=== PATIENT | female | born 1955 | race Caucasian/White ===

== ENCOUNTER 2017-05-02 05:04 | Inpatient (IN) | payer MEDICAID ==
[~2017-05-02] VITALS: Ht 165.1 cm; Wt 79.8 kg
[~2017-05-02 05:04] MED LIST: DEPAKOTE ER500 MG PO; HYDROCODONE-APA1 TAB PO; TIROSINT50 MCG PO; TOPAMAX50 MG PO; XANAX1 MG PO
[2017-05-02 06:06] LABS: BASOPHILS 0.2 % (0-2); EOSINOPHILS 1.1 % (0-7); HEMOGLOBIN 11.9 g/dL (12-16); IMMATURE GRANULOCYTES 0.2 % (0-5); LYMPHOCYTES 26.6 % (15-50); MCH 30.6 pg (26.0-34.0); MEAN PLATELET VOLUME 12.1 fL (7.4-10.4); MONOCYTES 3.7 % (2-11); NEUTROPHILS 68.2 % (40-80); PLATELET COUNT 177 10x3/uL (130-400); RBC 3.89 10x6/uL (4.00-5.40); RDW 12.4 % (11.5-14.5); WBC 9.6 10x3/uL (4.8-10.8)
[2017-05-02 06:29] LABS: KETONE - SERUM NEGATIVE (NEGATIVE)
[2017-05-02 06:42] LABS: ALBUMIN 3.4 g/dL (3.4-5.0); ALKALINE PHOSPHATASE 111 U/L (46-116); ALT (SGPT) 35 U/L (10-68); BILIRUBIN - TOTAL 0.23 mg/dL (0.2-1.3); CALC OSMOLALITY 286 mosm/kg (275-300); CALCIUM 8.3 mg/dL (8.5-10.1); CARBON DIOXIDE 21.7 mmol/L (21.0-32.0); CHLORIDE - SERUM 101 mmol/L (98-107); CREATININE - SERUM 1.2 mg/dL (0.6-1.3); MAGNESIUM - SERUM 1.6 mg/dL (1.8-2.4); POTASSIUM - SERUM 3.4 mmol/L (3.5-5.1); PROTEIN - SERUM 7.3 g/dL (6.4-8.2); SODIUM 134 mmol/L (136-145); UREA NITROGEN 17 mg/dL (7-18); eGFR NON AFRICAN AMERICAN 48 mL/min (90-120)
[2017-05-02 06:43] LABS: GLUCOSE 399 mg/dL (74-106)
[2017-05-02 07:59] LABS: CKMB 0.1 U/L (0.0-3.6); CREATINE KINASE 64 UL (21-215)
[2017-05-02 08:01] LABS: TROPONIN-I < 0.017 ng/mL (0.000-0.060)
[2017-05-02] MEDS ORDERED: PROTONIX40 MG PO (11:16)
[2017-05-02] MEDS ORDERED: KLONOPIN0.5 MG PO (11:17)
[2017-05-02] MEDS ORDERED: ZOFRAN4 MG PO (11:18)
[2017-05-02] MEDS ORDERED: OMEPRAZOLE20 M1 PO (11:19)
[2017-05-02] MEDS ORDERED: NEURONTIN600 MG PO (11:20)
[2017-05-02 11:26] VITALS: BP 145/77; BMI 27.5
[2017-05-02 12:00] VITALS: BP 145/77
--- NOTE | 2017-05-02 13:34 | NUR ---
CALLED PHARMACY X2 FOR INSULIN. WAITING. WILL CONTINUE TO MONITOR
[2017-05-02 16:11] VITALS: BP 117/66
--- NOTE | 2017-05-02 17:05 | NUR ---
PT SITTING UP IN BED EATING DINNER. STATES SHE HAS A SMALL HEADACHE. OFFERED A COOL CLOTH BUT PT REFUSED AND REFUSED FOR ME TO CALL AND GET MEDICATION. WILL CONTINUE OT MONITOR
[2017-05-02 20:00] VITALS: BP 119/65
[2017-05-02 22:06] LABS: APPEARANCE HAZY (CLEAR); BILIRUBIN NEGATIVE (NEGATIVE); COLOR DK YELLOW (YELLOW); GLUCOSE 500 mg/dL (NEGATIVE); KETONE NEGATIVE (NEGATIVE); LEUKOCYTE ESTERASE NEGATIVE (NEGATIVE); NITRITE NEGATIVE (NEGATIVE); PROTEIN NEGATIVE (NEGATIVE); SPECIFIC GRAVITY 1.025 (1.005-1.020); UROBILINOGEN NORMAL (NORMAL)
[2017-05-03] VITALS: BP 122/59
--- NOTE | 2017-05-03 01:38 | NUR ---
RESTING WITH EYES CLOSED. RR EVEN U/L. NO S/S OF DISCOMFORT. CL IN REACH.
[2017-05-03 04:00] VITALS: BP 113/54
[2017-05-03 05:26] LABS: BASOPHILS 0.2 % (0-2); EOSINOPHILS 0.9 % (0-7); HEMATOCRIT 35.1 % (36.0-48.0); HEMOGLOBIN 11.9 g/dL (12-16); IMMATURE GRANULOCYTES 0.2 % (0-5); LYMPHOCYTES 14.2 % (15-50); MCH 30.5 pg (26.0-34.0); MCHC 33.9 g/dL (31.0-37.0); MEAN PLATELET VOLUME 12.1 fL (7.4-10.4); NEUTROPHILS 80.5 % (40-80); PLATELET COUNT 169 10x3/uL (130-400); RDW 12.7 % (11.5-14.5)
[2017-05-03 05:37] LABS: WBC 12.4 10x3/uL (4.8-10.8)
[2017-05-03 05:39] LABS: CALCIUM 8.6 mg/dL (8.5-10.1); CARBON DIOXIDE 24.4 mmol/L (21.0-32.0); CREATININE - SERUM 1.1 mg/dL (0.6-1.3); MAGNESIUM - SERUM 1.8 mg/dL (1.8-2.4)
[2017-05-03 05:43] LABS: POTASSIUM - SERUM 4.4 mmol/L (3.5-5.1)
--- NOTE | 2017-05-03 07:00 | NUR ---
RECEIVED REPORT. ASSUMED CARE OF PATIENT. CALL LIGHT WITHIN REACH. PATIENT A&O. DENIES NEEDS OTHER THAN FOR THE MD TO APPROVE HER PAIN MEDICATIONS. NO DISTRESS. RESP EVEN AND UNLAOBRED.
[2017-05-03 07:51] VITALS: BP 116/53
--- NOTE | 2017-05-03 09:47 | NUR ---
MEDICATED WITH TYELENOL FOR GENERALIZED PAIN. NO DISTRESS. RESP EVEN AND UNLABORED.
[2017-05-03 11:21] VITALS: Ht 165.1 cm; Wt 79.8 kg
[2017-05-03 11:34] VITALS: BP 106/42
--- NOTE | 2017-05-03 12:00 | NUR ---
FSBS 172. 4 UNITS HUMULIN R ADMINISTERED PER SLIDING SCALE AT THIS TIME. NO DISTRESS.
--- NOTE | 2017-05-03 15:19 | NUR ---
MEDICATED FOR PAIN AND ANXIETY AT THIS TIME. PATIENTS MEDICATIONS NOW RESTARTED. RESTING IN BED WITH EYES OPEN. NO DISTRESS.
[2017-05-03 16:00] VITALS: BP 139/74
--- NOTE | 2017-05-03 16:50 | NUR ---
FSBS 197. 4 UNITS HUMULIN INSULIN ADMINISTERED PER SLIDING SCALE.
--- NOTE | 2017-05-03 19:15 | NUR ---
RECEIVED REPORT, WILL ASSUME CARE OF PT, EATING A SANDWICH,DENIES ANY NEEDS AT THIS TIME, CALL LIGHT IN REACH, WILL CONTINUE PLAN OF CARE
[2017-05-03 20:00] VITALS: BP 119/44
[2017-05-04] VITALS: BP 105/54
--- NOTE | 2017-05-04 02:45 | NUR ---
ASSESSMENT COMPLETE, SEE FLOW SHEET, PT SLEEPING, BED IS LOW, SRX2, CALL LIGHT IN REACH, WILL CONTINUE PLAN OF CARE
[2017-05-04 04:00] VITALS: BP 110/50
--- NOTE | 2017-05-04 07:15 | NUR ---
RECEIVED REPORT. ASSUMED CARE OF PATIENT. CALL LIGHT WITHIN REACH. RESTING WITH EYES OPEN, CONVERSING ON PHONE AT THIS TIME. DENIES NEEDS. NO DISTRESS.
[2017-05-04 08:00] VITALS: BP 106/59
--- NOTE | 2017-05-04 09:35 | NUR ---
PATIENT OPENED UP THIS STAMPING PRESS OPERATOR THIS AM ABOUT HAVING EPISODES OF BREAKING DOWN CRYING FOR NO REASON. PATIENT STATES SHE DOESN'T KNOW WHY. QUESTIONED PATIENT ON RECENT CHANGES IN MEDICATIONS OR LIFE EXPERIENCES. PATIENT STATES SHE LOST HER SON 7 YEARS AGO AND NEVER REALLY GOT OVER THAT AND THEN LOST HER BOYFRIEND THIS PAST SEPTEMBER, AND SHE LIVES ALONE. ASKED PATIENT IF I COULD SHARE THIS WITH HE CAN FORMULATE AN EFFECTIVE PLAN OF CARE TO HELP TREAT PATIENT WHILE SHE IS HERE. PATIENT STATES THAT WOULD BE FINE. NO DISTRESS, TEARFULL, LYING IN BED.
[2017-05-04 12:00] VITALS: BP 101/63
--- NOTE | 2017-05-04 12:07 | NUR ---
FSBS 194. 4 UNITS HUMULIN ADMINISTERED PER SLIDING SCALE. NO DISTRESS. CONSUMING NOON MEAL AT THIS TIME.
[2017-05-04 16:00] VITALS: BP 103/47
--- NOTE | 2017-05-04 16:52 | NUR ---
FSBS 159. 4 UNITS HUMULIN INSULIN ADMINISTERED PER SLIDING SCALE. NO DISTRESS. CONSUMING PM MEAL AT THIS TIME.
--- NOTE | 2017-05-04 18:27 | NUR ---
MEDICATED FOR PAIN AND ANXIETY AT THIS TIME. CALL LIGHT WITHIN REACH.
--- NOTE | 2017-05-04 19:48 | NUR ---
RECEIVED REPORT, WILL ASSUME CARE OF PT, PT SLEEPING, NO DISTRESS NOTICED, BED IS LOW, SRX2, WILL CONTINUE PLAN OF CARE
[2017-05-04 20:00] VITALS: BP 121/65
[2017-05-05] VITALS: BP 129/51
--- NOTE | 2017-05-05 00:15 | NUR ---
ASSESSMENT COMPLETE, SEE FLOWSHEET, PT SLEEPING. BED IS LOW, SRX2. CALL LIGHT IN REACH, GAVE REPORT TO BARRY DOHERTY
--- NOTE | 2017-05-05 00:20 | NUR ---
Received report from Soo DOHERTY. Received patient in bed awake. Alert and oriented x 4. Resting quietly, PIV in right forearm is SL. No voiced complaints or concerns at this time.
[2017-05-05 04:00] VITALS: BP 130/56
--- NOTE | 2017-05-05 07:42 | NUR ---
AM ROUNDS - PT IN BED AND APPEARS TO BE SLEEPING WITH EQUALA ND NON LABORED BREATHING. BED AT LOWEST POSITION. CALL EPPERSON IN REACH. SIDE RAILS UP X2. PT IS ON RA. WILL CONTINUE TO MONITOR
[2017-05-05 08:00] VITALS: BP 98/59
--- NOTE | 2017-05-05 14:19 | NUR ---
PT IN BED AND APPEARS TO BE SLEEPY. PT IS SLOW TO RESPOND. NO NEEDS AT THIS TIME. WILL CONTINUE TO MONITOR
--- NOTE | 2017-05-05 16:28 | NUR ---
CALLED AND SPOKE WITH CHAS ZHANG AT DR CORNEJO'S OFFICE. PATIENT IS BEING DISCHARGED AND WANTED SCRIPTS FOR HER NORCO AND KLONOPIN. SHE WAS TOLD BY THE STAFF THAT THOSE WERE HOME MEDS AND WE TYPICALLY DO NOT REFILL HOME MEDS THAT ARE CONTROLLED SUBSTANCES. SHE STATED THAT SHE CALLED DR CORNEJO'S OFFICE AND SAID THE NURSE SAID THAT WE WOULD GIVE HER A NEW SCRIPT. SHE SPOKE WITH DR CORNEJO WHO STATED THAT HE WILL NOT GIVE HER ANOTHER SCRIPT UNTIL HER FOLLOW UP APPOINTMENT. I WENT IN AND EXPLAINED THIS TO THE PATIENT AND SHE STATED THAT SHE ALREADY KNEW THAT, THAT SHE TALKED TO DR CORNEJO EARLIER. NURSE WAS AT BEDSIDE DC'ING HER IV AND HEARD THIS CONVERSATION.
--- NOTE | 2017-05-05 16:46 | NUR ---
WRITTEN AND VERBAL D/C ORDERS GIVEN TO PT. IV TO RIGHT FA, D/C, 2X2 DRESSING APPLIED AND SECURED WITH TAPE. PT TOLERATED WELL. PT LEFT FLOOR VIA WHEELCHAIR BY RN. WILL D/C
--- NOTE | 2017-05-05 17:53 | NUR ---
Patient Name: SHANE PLAZA Admission Status: ER Accout number: [id number] Admission Date: 05-04-2017 : 1955 Admission Diagnosis: Attending: BEN CORNEJO Current LOS: 1 Anticipated DC Date: 05-05-2017 Planned Disposition: Home Primary Insurance: MEDICAID [place] Discharge Planning Comments: * Is the patient Alert and Oriented? Yes 0 * How many steps to enter\\exit or inside your home? NONE 0 * PCP DR. CORNEJO 0 * Pharmacy [facility] 0 * Preadmission Environment Home with Family 0 * ADLs Independent 0 * Equipment None 0 * Other Equipment NO MEDICAL EQUIPMENT PROVIDER PREFERENCE 0 * List name and contact numbers for known caregivers / representatives who currently or will assist patient after discharge: BRIA MUSE, SON, 0 * Community resources currently utilized None 0 * Please name any agencies selected above. NONE 0 * Additional services required to return to the preadmission environment? No 0 * Can the patient safely return to the preadmission environment? Yes 0 * Has this patient been hospitalized within the prior 30 days at any hospital? No 0 CM MET WITH PT IN ROOM TO DISCUSS DISCHARGE PLANNING AND NEEDS. PT REPORTS LIVING AT HOME INDEPENDENTLY WITH ADULT SON. PT HAS NO MEDICAL EQUIPMENT AND NO OUTSIDE SERVICES ASSISTING IN THE HOME. CM DISCUSSED AVAILABILITY OF HOME HEALTH, REHAB SERVICES AND MEDICAL EQUIPMENT. PT DENIES DISCHARGE NEEDS, WANTS CM TO NOTIFY THE NURSE THAT SHE NEEDS PRESCRIPTIONS FOR HER "HYDRO'S AND KLONAPINS". PT REPORTS HER SON WILL PICK HER UP FOR DISCHARGE HOME. CM NOTIFIED TRAM OPERATOR NURSE OF PT'S REQUEST. Geothermal Plant Manager: Evans Ann
== END 2017-05-05 17:00 | disposition home or self-care (01) | DRG 103 ==
LOC: OBSVTIME → D.ER 05:04 → OBSVTIME 09:43 → D.M2 09:43 → D.ER 10:00 → OBSVTIME 10:00 → D.M2 05-03 15:10
PROVIDERS: Emergency Medicine; Family Medicine; ADMIT Legal Medicine
DX: G43.109 Migraine with aura, not intractable, without status migrainosus (principal); I69.954 Hemiplegia and hemiparesis following unspecified cerebrovascular disease affecting left non-dominant side; K21.9 Gastro-esophageal reflux disease without esophagitis; E11.9 Type 2 diabetes mellitus without complications; F41.9 Anxiety disorder, unspecified; F32.9 Major depressive disorder, single episode, unspecified; M54.5 Low back pain; G89.29 Other chronic pain; I10 Essential (primary) hypertension; Z95.0 Presence of cardiac pacemaker

== ENCOUNTER → 2018-01-23 13:42 | Outpatient (CLI) | payer MEDICAID ==
[2017-05-03 11:21] VITALS: BMI 28.4
[~2018-01-23 13:42] MED LIST changes: +KLONOPIN0.5 MG PO; +NEURONTIN600 MG PO; +OMEPRAZOLE20 M1 PO; +PROTONIX40 MG PO; +ZOFRAN4 MG PO
== END | disposition home or self-care (01) ==
LOC: D.CT 13:42
DX: M54.5 Low back pain (principal)

== ENCOUNTER → 2018-12-30 14:08 | Outpatient (CLI) | payer MEDICAID ==
[2017-05-03 11:21] VITALS: BMI 28.4
== END | disposition home or self-care (01) ==
LOC: D.RAD 14:08
PROVIDERS: ATTEND Emergency Medicine
DX: R10.9 Unspecified abdominal pain (principal); R19.7 Diarrhea, unspecified

== ENCOUNTER 2019-10-21 05:00 | Day surgery (SDC) | payer MEDICAID ==
[2019-10-19 10:18] LABS: ANION GAP 13.2 mmol/L (8-16); CALCIUM 9.2 mg/dL (8.5-10.1); CARBON DIOXIDE 27.3 mmol/L (21.0-32.0); CREATININE - SERUM 0.9 mg/dL (0.6-1.3); POTASSIUM - SERUM 4.5 mmol/L (3.5-5.1)
[2019-10-19 10:25] LABS: BASOPHILS 0.3 % (0-2); EOSINOPHILS 1.2 % (0-7); HEMATOCRIT 36.1 % (36.0-48.0); HEMOGLOBIN 11.9 g/dL (12-16); IMMATURE GRANULOCYTES 0.1 % (0-5); LYMPHOCYTES 35.2 % (15-50); MCH 29.2 pg (26.0-34.0); MCV 88.7 fL (80.0-100.0); MEAN PLATELET VOLUME 12.7 fL (7.4-10.4); MONOCYTES 7.2 % (2-11); PLATELET COUNT 198 10x3/uL (130-400); RBC 4.07 10x6/uL (4.00-5.40); RDW 12.7 % (11.5-14.5); WBC 7.2 10x3/uL (4.8-10.8)
[~2019-10-21] VITALS: Ht 165.1 cm; Wt 67.6 kg
[~2019-10-21 05:00] MED LIST changes: +HUMULIN N100 U/ML SC; +LIPITOR80 MG PO; +LISINOPRIL5 MG PO
[2019-10-21 05:59] VITALS: BP 155/53; Ht 165.1 cm; Wt 67.6 kg
--- NOTE | 2019-10-21 06:25 | NUR ---
DR. MADERA NOTIFIED AND REVIEWED PT'S BEHAVIOR AND ASSESSMENT RESULTS. PT IS A LOW RISK PER DR. MADERA. DR. MADERA STATED TO GIVE RESOURCES TO PT AT TIME OF DISCHARGE. NO FURTHER ORDERS AT THIS TIME. RESOURCES REVIEWED WITH PT AND SHE VERBALIZED UNDERSTANDING.
[2019-10-21] MEDS ORDERED: HYDROCODON-ACE1 EA10 PO (09:01)
--- NOTE | 2019-10-21 10:13 | NUR ---
PT STATES HAVING PAIN 10/10 TO INCISION SITES ON BACK. WILL ADMINISTER PAIN MEDICATION PER ORDER. WILL CONTINUE TO MONITOR.
--- NOTE | 2019-10-21 10:36 | NUR ---
DC INSTRUCTIONS GIVEN TO PT. STATES UNDERSTANDING. DC'D IV CATH FULLY INTACT.
--- NOTE | 2019-10-21 10:49 | NUR ---
PT LEFT UNIT VIA WC AT 1045
--- NOTE | 2019-10-25 08:06 | OP ---
PATIENT NAME: SHANE PLAZA MEDICAL RECORD: [id number] :55 LOCATION:[id number] ADMISSION DATE: SURGEON: GRAHAM COELHO MD DATE OF OPERATION: 10/21/2019 PREOPERATIVE DIAGNOSES: 1. Right posterior shoulder lipoma. 2. Mid back lipoma. 3. Hypertension. 4. Hypercholesterolemia. 5. Diabetes mellitus. POSTOPERATIVE DIAGNOSES: 1. Right posterior shoulder lipoma. 2. Mid back lipoma. 3. Hypertension. 4. Hypercholesterolemia. 5. Diabetes mellitus. PROCEDURE: Excision of 7 cm right posterior shoulder lipoma and a 3 cm right mid back lipoma. SURGEON: Graham Coelho MD REPORT OF PROCEDURE: The patient was placed in the jackknife prone position and the patient's back was prepped and draped in sterile fashion. A 3 cm incision was made transversely overlying the mass just to the right of midline and the mid back. Electrocautery was used to dissect through the subcutaneous tissues and we encountered some firm fatty tissue. This fatty tissue did not have a distinct covering around it. We removed this section of tissue and felt around in the wound and did not feel evidence of any further mass lesions. At this point, electrocautery was used to stop any bleeding and then we irrigated out the wound with normal saline. A 5 cc of 1% lidocaine with epinephrine was infused into the surrounding tissues and the subcutaneous tissues were reapproximated with interrupted 3-0 Vicryls. We then approached the patient's right posterior shoulder. A 7-cm transverse incision was made overlying this mass. Electrocautery was used to dissect through the subcutaneous tissues and we encountered a firm mass with a distinct sheath around it. We were able to just do blunt dissection around this large mass and extract it from the surrounding tissues. The 2 masses were then sent off separately for permanent specimen. We irrigated out the wound with normal saline. Any bleeding that was found was treated with electrocautery. Subcutaneous tissues were infused with a total of 15 mL of 0.25% Marcaine with epinephrine and then closed with interrupted 3-0 Vicryls. The skin incisions for both wounds were closed with running subcutaneous 5-0 Monocryl. COMPLICATIONS: None. CONDITION: Stable. ANESTHESIA: General endotracheal and local. BLOOD LOSS: Minimal. TRANSINT:[id number] Voice Confirmation ID: [id number] DOCUMENT ID: [id number] OPERATIVE REPORT [id number] SHANE PLAZA CHRISTIAN MD at 0806 CC: BEN CORNEJO MD [id number] DICTATION DATE: 10/21/19908 ORTHOTIC/PROSTHETIC PRACTITIONER: 10/21/19 0946 [facility] 10/21/19 [id number] [place] [address]
== END 2019-10-21 10:48 | disposition home or self-care (01) ==
LOC: D.OPS 05:00 → D.PAN 07:30 → D.OPS 10:48
PROVIDERS: ATTEND Surgery
DX: D17.1 Benign lipomatous neoplasm of skin and subcutaneous tissue of trunk (principal); I10 Essential (primary) hypertension; E78.00 Pure hypercholesterolemia, unspecified; E11.9 Type 2 diabetes mellitus without complications

== ENCOUNTER → 2020-01-17 18:55 | Outpatient (CLI) | payer MEDICAID ==
[2019-10-21 05:59] VITALS: BMI 24.8
[~2020-01-17 18:55] MED LIST changes: +HYDROCODON-ACE1 EA10 PO
[2020-01-17 20:01] LABS: HEMATOCRIT 34.5 % (36.0-48.0); HEMOGLOBIN 11.2 g/dL (12-16); MCH 29.9 pg (26.0-34.0); MCHC 32.5 g/dL (31.0-37.0); MEAN PLATELET VOLUME 13.4 fL (7.4-10.4); PLATELET COUNT 177 10x3/uL (130-400); RBC 3.75 10x6/uL (4.00-5.40); RDW 13.6 % (11.5-14.5); WBC 5.7 10x3/uL (4.8-10.8)
[2020-01-17 21:20] LABS: EOSINOPHILS 1 % (0-7); LYMPHOCYTES 49 % (15-50); MONOCYTES 2 % (2-11); NEUTROPHILS 48 % (40-80); PLATELET ESTIMATE NORMAL
== END | disposition home or self-care (01) ==
LOC: D.LABREF 18:55
PROVIDERS: ATTEND Legal Medicine
DX: I10 Essential (primary) hypertension (principal)

== ENCOUNTER → 2020-10-18 12:29 | Outpatient (CLI) | payer MEDICARE ==
[2019-10-21 05:59] VITALS: BMI 24.8
== END | disposition home or self-care (01) ==
LOC: D.LAB 12:29
PROVIDERS: ATTEND Emergency Medicine
DX: M51.06 Intervertebral disc disorders with myelopathy, lumbar region (principal)

== ENCOUNTER 2020-12-01 14:42 | Emergency (ER) | payer OTHER ==
[~2020-12-01] VITALS: Ht 165.1 cm; Wt 63.5 kg
[2020-12-01 14:55] VITALS: Ht 165.1 cm; Wt 63.5 kg
[2020-12-01 14:58] VITALS: BP 160/71
[2020-12-01] MEDS ORDERED: CYCLOBENZAPRINE10 MG PO (17:01)
== END 2020-12-01 17:15 | disposition home or self-care (01) ==
LOC: D.ER 14:42
DX: R51.9 Headache, unspecified (principal); M54.2 Cervicalgia; M54.9 Dorsalgia, unspecified; E11.40 Type 2 diabetes mellitus with diabetic neuropathy, unspecified; I10 Essential (primary) hypertension; K21.9 Gastro-esophageal reflux disease without esophagitis; Z79.4 Long term (current) use of insulin